=== PATIENT | male | born 1950 | race Asian ===

== ENCOUNTER 2016-11-10 09:54 | Outpatient (CLI) | payer OTHER | END 2016-11-10 10:05 | disposition short-term general hospital (02) | LOC: AMB 09:54 | DX: R41.82 Altered mental status, unspecified (principal); W17.89XA Other fall from one level to another, initial encounter; Y92.512 Supermarket, store or market as the place of occurrence of the external cause | CPT/HCPCS: A0425; A0427 ==

== ENCOUNTER 2016-11-10 10:09 | Emergency (ER) | payer OTHER ==
[~2016-11-10] VITALS: Ht 172.7 cm; Wt 49.9 kg
[2016-11-10 10:33] VITALS: BP 79/52; TEMP 97.6
[2016-11-10 10:41] LABS: PLATELET COUNT 211 K/uL (142-355)
[2016-11-10 10:47] LABS: POTASSIUM 3.6 mmol/L (3.6-5.2)
== END 2016-11-10 13:52 | disposition home or self-care (01) ==
LOC: ED 10:09
DX: F14.10 Cocaine abuse, uncomplicated (principal); F10.10 Alcohol abuse, uncomplicated
CPT/HCPCS: 80053; 80307; 80320; 81000; 85027; 96360; 96361; 99284; G0479; J3411

== ENCOUNTER 2017-02-19 14:15 | Outpatient (CLI) | payer OTHER | END 2017-02-19 14:31 | disposition short-term general hospital (02) | LOC: AMB 14:15 | DX: T67.5XXA Heat exhaustion, unspecified, initial encounter (principal); R53.1 Weakness | CPT/HCPCS: A0425; A0427 ==

== ENCOUNTER 2017-02-19 14:40 | Emergency (ER) | payer OTHER ==
[~2017-02-19] VITALS: Ht 172.7 cm; Wt 65.8 kg
[2017-02-19 14:35] VITALS: TEMP 97.7
[2017-02-19 15:15] LABS: PLATELET COUNT 243 K/uL (142-355)
[2017-02-19 15:28] LABS: POTASSIUM 3.5 mmol/L (3.6-5.2)
[2017-02-19 17:00] VITALS: BP 184/101
== END 2017-02-19 17:00 | disposition home or self-care (01) ==
LOC: ED 14:40
PROVIDERS: Emergency Medicine
DX: R55 Syncope and collapse (principal); F14.90 Cocaine use, unspecified, uncomplicated; F12.90 Cannabis use, unspecified, uncomplicated; R68.89 Other general symptoms and signs; X30.XXXA Exposure to excessive natural heat, initial encounter
CPT/HCPCS: 80053; 80307; 80320; 82550; 82553; 84484; 85027; 99284; G0479

== ENCOUNTER 2017-08-13 09:50 | Outpatient (CLI) | payer OTHER | END 2017-08-13 19:04 | disposition home or self-care (01) | LOC: RAD 09:50 | DX: R22.41 Localized swelling, mass and lump, right lower limb (principal); M79.5 Residual foreign body in soft tissue; R53.83 Other fatigue; R53.81 Other malaise; R73.09 Other abnormal glucose; E78.00 Pure hypercholesterolemia, unspecified | CPT/HCPCS: 80053; 80061; 83036; 84154; 84436; 84443; 85027 ==

== ENCOUNTER 2017-08-13 13:37 | Outpatient (CLI) | payer OTHER ==
[2017-08-13 16:45] LABS: PLATELET COUNT 261 K/uL (142-355)
[2017-08-13 16:47] LABS: POTASSIUM 3.8 mmol/L (3.6-5.2); SODIUM 135 mmol/L (136-145)
== END 2017-08-13 19:06 | disposition home or self-care (01) ==
LOC: LAB 13:37
PROVIDERS: Nurse Practitioner Family
DX: R22.41 Localized swelling, mass and lump, right lower limb (principal); M79.5 Residual foreign body in soft tissue; R53.83 Other fatigue; R53.81 Other malaise; R73.09 Other abnormal glucose; E78.00 Pure hypercholesterolemia, unspecified
CPT/HCPCS: 80053; 80061; 83036; 84154; 84436; 84443; 85027

== ENCOUNTER 2018-06-18 13:41 | Outpatient (CLI) | payer OTHER | END 2018-06-18 13:52 | disposition short-term general hospital (02) | LOC: AMB 13:41 | DX: M79.604 Pain in right leg (principal) | CPT/HCPCS: A0425; A0427 ==

== ENCOUNTER 2018-06-18 13:55 | Inpatient (IN) | payer OTHER ==
[~2018-06-18] VITALS: Ht 167.6 cm; Wt 47.4 kg
[2018-06-18 14:03] VITALS: BP 164/143; TEMP 98.1
[2018-06-18 14:41] VITALS: BP 162/100
[2018-06-18 14:44] LABS: PLATELET COUNT 330 K/uL (142-355)
[2018-06-18 14:55] LABS: POTASSIUM 3.1 mmol/L (3.6-5.2)
[2018-06-18 15:05] LABS: PARTIAL THROMBOPLASTIN TIME 21.9 SECONDS (24.5-33.6)
[2018-06-18 21:23] VITALS: BP 156/69; TEMP 97.9
[2018-06-18 22:46] VITALS: BP 159/69; TEMP 97.9; Ht 167.6 cm; Wt 47.4 kg
[2018-06-19 01:14] VITALS: BP 139/94; TEMP 98.7
[2018-06-19 04:19] LABS: PLATELET COUNT 329 K/uL (142-355)
[2018-06-19 04:38] VITALS: BP 165/106; TEMP 97.7
[2018-06-19 20:00] VITALS: BP 166/92; TEMP 97.5
[2018-06-20] VITALS: BP 168/89; TEMP 98.3
[2018-06-20 04:00] VITALS: BP 138/86; TEMP 99
[2018-06-20 05:52] LABS: PLATELET COUNT 308 K/uL (142-355)
[2018-06-20 06:11] LABS: POTASSIUM 3.1 mmol/L (3.6-5.2)
== END 2018-06-20 18:30 | disposition home or self-care (01) | DRG 607 ==
LOC: ED 13:55 → MED/SURG 18:10
PROVIDERS: ADMIT Family Medicine
DX: L72.8 Other follicular cysts of the skin and subcutaneous tissue (principal); F10.10 Alcohol abuse, uncomplicated
CPT/HCPCS: 80053; 81000; 85027; 85379; 85610; 85730; 87040; 99283; J0690

== ENCOUNTER 2018-11-27 16:06 | Inpatient (IN) | payer OTHER ==
[~2018-11-27] VITALS: Ht 167.6 cm; Wt 48.6 kg
[2018-11-27 16:15] VITALS: BP 162/98; TEMP 97
[2018-11-27 16:45] LABS: PLATELET COUNT 373 K/uL (142-355)
[2018-11-27 16:54] VITALS: BP 132/90
[2018-11-27 16:54] LABS: POTASSIUM 3.7 mmol/L (3.6-5.2); SODIUM 134 mmol/L (136-145)
[2018-11-27 17:58] VITALS: BP 156/87
[2018-11-27 19:14] VITALS: BP 159/90; TEMP 97.5; Ht 167.6 cm; Wt 48.6 kg
[2018-11-27 20:00] VITALS: BP 150/88; TEMP 97.4
[2018-11-28] VITALS: BP 143/76; TEMP 98.3
[2018-11-28 04:00] VITALS: BP 149/90; TEMP 98.3
[2018-11-28 08:00] VITALS: BP 133/73; TEMP 98.4
[2018-11-28 12:00] VITALS: BP 137/73; TEMP 97.6
[2018-11-28 13:37] LABS: POTASSIUM 2.8 mmol/L (3.6-5.2)
[2018-11-28 13:39] LABS: PLATELET COUNT 372 K/uL (142-355)
[2018-11-28 16:00] VITALS: BP 167/91; TEMP 98.7
[2018-11-28 20:00] VITALS: BP 140/79; TEMP 98
[2018-11-29] VITALS: BP 139/79; TEMP 97.9
[2018-11-29 04:00] VITALS: BP 157/85; TEMP 98.1
[2018-11-29 05:50] LABS: PLATELET COUNT 410 K/uL (142-355)
[2018-11-29 06:12] LABS: POTASSIUM 3.2 mmol/L (3.6-5.2)
[2018-11-29 08:00] VITALS: BP 164/96; TEMP 98.3
[2018-11-29 12:00] VITALS: BP 152/91; TEMP 99.1
[2018-11-29 16:00] VITALS: BP 144/80; TEMP 98.4
[2018-11-29 20:00] VITALS: BP 162/88; TEMP 99.6
[2018-11-30 00:08] VITALS: BP 141/83; TEMP 98.6
[2018-11-30 04:00] VITALS: BP 162/92; TEMP 98.9
[2018-11-30 07:44] LABS: PLATELET COUNT 441 K/uL (142-355)
[2018-11-30 12:00] VITALS: BP 152/84; TEMP 97.9
[2018-11-30 16:00] VITALS: BP 174/99; TEMP 97.9
[2018-11-30 20:00] VITALS: BP 153/86; TEMP 98.9
[2018-12-01] VITALS: BP 142/82; TEMP 98.5
[2018-12-01 04:00] VITALS: BP 138/80; TEMP 98.5
[2018-12-01 06:39] LABS: PLATELET COUNT 446 K/uL (142-355)
[2018-12-01 08:00] VITALS: BP 126/72; TEMP 99.3
[2018-12-01 12:00] VITALS: BP 129/79; TEMP 98.7
[2018-12-01 16:00] VITALS: BP 136/76; TEMP 99.4
[2018-12-01 20:00] VITALS: BP 135/76; TEMP 98.2
[2018-12-02] VITALS: BP 138/78; TEMP 98.2
[2018-12-02 04:00] VITALS: BP 147/86; TEMP 98.3
[2018-12-02 05:51] LABS: PLATELET COUNT 511 K/uL (142-355)
[2018-12-02 08:00] VITALS: BP 123/81; TEMP 97.8
[2018-12-02 12:00] VITALS: BP 131/78; TEMP 97.9
[2018-12-02 16:00] VITALS: BP 132/76; TEMP 98.3
[2018-12-02 20:00] VITALS: BP 187/86; TEMP 97.6
[2018-12-03 00:21] VITALS: BP 137/74; TEMP 98.5
[2018-12-03 04:00] VITALS: BP 164/87; TEMP 97.5
[2018-12-03 05:35] LABS: PLATELET COUNT 493 K/uL (142-355)
[2018-12-03 05:57] LABS: POTASSIUM 3.3 mmol/L (3.6-5.2)
[2018-12-03 08:00] VITALS: BP 135/73; TEMP 98.1
== END 2018-12-03 10:55 | disposition short-term general hospital (02) | DRG 438 ==
LOC: ED 16:13 → MED/SURG 17:30
PROVIDERS: Family Medicine; ADMIT Emergency Medicine
DX: K86.89 Other specified diseases of pancreas (principal); E43 Unspecified severe protein-calorie malnutrition; E87.1 Hypo-osmolality and hyponatremia; E86.0 Dehydration; R62.7 Adult failure to thrive; K70.9 Alcoholic liver disease, unspecified; F10.20 Alcohol dependence, uncomplicated; E87.6 Hypokalemia; D72.828 Other elevated white blood cell count; E83.42 Hypomagnesemia
CPT/HCPCS: 36415; 80053; 80061; 81000; 82150; 82248; 82306; 82550; 82553; 82746; 83690; 83735; 84443; 84484; 85027; 85651; 86140; 93005; 96360; 99284; A9576; J1650; J1885; J2185; J2270; J3411; J3475; J3480; J3490; Q9963